=== PATIENT | female | born 1985 | race African-American/Black ===

== ENCOUNTER 2021-01-06 10:00 | Emergency (ER) | payer SELFPAY ==
[~2021-01-06] VITALS: Ht 180.3 cm; Wt 92.3 kg
[2021-01-06] MEDS ORDERED: SODIUM CHLORIDE 0.9% 1000ML 1,000 ML IV STA (10:19)
[2021-01-06] MEDS ORDERED: ONDANSETRON HCL INJ 2MG/ML 2ML 2 MG/ML VIAL IV ONE (10:30)
[2021-01-06] MEDS ORDERED: PROVENTIL HFA6.7 GM INH (10:35)
[2021-01-06] MEDS ORDERED: OMEPRAZOLE40 MG PO (10:35)
[2021-01-06] MEDS ORDERED: SODIUM CHLORIDE 0.9% 1000ML 1,000 ML ONE (11:23)
[2021-01-06] MEDS ORDERED: ONDANSETRON HCL INJ 2MG/ML 2ML 2 MG/ML VIAL ONE (11:23)
== END 2021-01-06 12:20 | disposition home or self-care (01) ==
LOC: FSED 10:20
DX: R07.9 Chest pain, unspecified (principal); R06.02 Shortness of breath; R10.9 Unspecified abdominal pain; R11.0 Nausea; R94.31 Abnormal electrocardiogram [ECG] [EKG]
CPT/HCPCS: 74022; 80053; 81003; 81025; 82553; 84484; 85025; 85379; 93005; 96374; 99284; C9113; J7030; J2405